=== PATIENT | male | born 1985 | race Hispanic/Latino ===

== ENCOUNTER 2025-01-06 16:53 | Inpatient (IN) | payer SELFPAY ==
[2025-01-06 16:54] VITALS: BP 125/81; PULSE 84; RESP 16; TEMP 36.5; O2SAT 99; BMI 26.2
--- NOTE | 2025-01-06 17:12 | EX.ED.DYSGE1 ---
HPI History of Present Illness Chief Complaint: General Illness Detail of Chief Complaint: Ache all over Onset/Context/Timing Onset: Today (1599) Context: Sudden Onset Timing: Continuous Quality: Thirsty, cramping Location: Not applicable Current Severity: Moderate Maximum Severity: Moderate Worsened by: Insufficient intake Relieved by: Nothing Associated Symptoms Associated Symptoms: Detailed HPI narrative Narrative Narrative: Patient is a 39-year-old male who is non-French speaking and drinks and smokes daily who presents with cramping, aching, headache, thirst and not feeling well since 1599. He started work at 7 AM. States has had 8 bottles of water. Has not urinated since he left his home. He denies change in vision. He denies cardiac or respiratory symptoms. His only GI symptom is nausea. He has had no urine output since this morning. He presents from work Prior similar symptoms: No Recent Illness/Hospitalization: No PFSH PFSH Medical History no medical history no medical history Allergy/AdvReac Type Severity Reaction Status Date / Time No Known Allergies Allergy Verified 01/06/25 16:57 Family History no significant family his Surgical History no surgical history Social History (Updated 01/06/25 @ 17:[address] John Johnston MD) Smoking Status: Current every day smoker alcohol intake: current ROS ROS ED Constitutional Constitutional ED: Denies chills, fever(s), subjective or sweats Eyes Eyes: Denies blurry vision or change in vision ENT ENT ED: Denies ear pain, rhinorrhea or sore throat Cardiovascular Cardiovascular: Denies chest pain or palpitations Respiratory/Chest Respiratory/Chest: Denies cough, dyspnea or dyspnea on exertion Gastrointestinal Gastrointestinal: Reports nausea; Denies abdominal pain, constipation, diarrhea, melena or vomiting Genitourinary Genitourinary ED: Reports other Details: No urine output since this morning Musculoskeletal Musculoskeletal: Reports other Details: Cramping upper and lower extremities Integumentary Denies rash Neurologic Neurologic: Reports headache(s) and weakness; Denies paresthesias Hematologic/Lymphatic Hematologic/Lymphatic: Reports systems reviewed and no addt'l complaints, except as documented EXAM Physical Exam Const Vital Signs: 01/06/25 16:54 01/06/25 16:57 01/06/25 18:54 Temperature 97.7 F L Temperature Source Axillary Pulse Rate 84 70 Respiratory Rate 16 18 Respiratory Effort Normal Non-Labored Respiratory Pattern Normal Blood Pressure 125/81 H 117/74 Blood Pressure Mean 95 88 Pulse Ox 99 98 Oxygen Delivery Method Room Air Positive well nourished and well developed Constitutional Narrative: Patient appears ill. He is sweating. His clothes are saturated. General Appearance ED: well developed; Negative for cyanotic or diaphoretic HEENT Reports dry mucous membranes HEENT Narrative: Head is atraumatic normocephalic. Ears normal. Nares patent. Posterior pharynx is normal. Mouth ED: Yes dry mucous membranes Mouth: dry mucous membranes Eyes PERRL and EOMs intact bilaterally General Eye ED: Negative for pale conjunctiva or scleral icterus Neck no lymphadenopathy, supple and no JVD Chest Wall inspection of chest normal and palpation of chest normal Resp normal respiratory effort and clear to auscultation bilaterally Cardio regular rate, regular rhythm, S1 normal heart sound, S2 normal heart sound and no murmurs GI normal to inspection, nondistended, normoactive bowel sounds, non-tender, non-distended and no masses; Negative for hepatosplenomegaly Extremity normal to inspection Extremity Narrative: There is no clubbing or cyanosis. Neuro oriented x3, CN's II-XII intact bilaterally and no sensory deficits noted Sensorium / Orientation: alert Motor Exam: strength 5/5 throughout Psych mental status grossly normal Skin Skin Narrative: Patient is suntanned/sunburn. MDM MDM MDM Narrative Medical decision making narrative: Patient presents with heat cramps. Will obtain electrolytes to assess renal function and sodium CO2 anion gap. 2 L of normal saline was ordered. Will reassess after the 2 L have infused. Clinically he is profoundly dehydrated. Lab Data Attestation: I reviewed the patient's lab results. Lab results narrative: Basic metabolic panel is remarkable for hyponatremia, high anion gap acidosis and acute kidney injury with a creatinine of 2.51. Estimated GFR is 33. Labs: Laboratory Results - last 24 hr 01/06/25 17:17 Sodium 132 L Potassium 4.0 Chloride 90 L Carbon Dioxide 20.6 L Anion Gap 22 H BUN 19 Creatinine 2.51 H Estim Creat Clear Calc 28.50 L Est GFR (MDRD) Non-Af 33 L BUN/Creatinine Ratio 7.7 L Glucose 99 Calcium 11.0 Management Discussion w/another healthcare provider: Hospitalist (Dr. Kasandra Colon was made aware. Full admit MedSurg) Treatment and Re-Evaluation :: Life Sciences Director was asked to page the hospitalist at [phone]. Will add liver profile, lipase and CBC. Discharge Plan Dx/Rx/DC Orders Clinical Impression: Acute kidney injury, Acute dehydration, Heat exhaustion due to water depletion, Heat cramp, initial encounter, Hyponatremia, High anion gap metabolic acidosis Disposition Disposition: Acute Care [facility]
[2025-01-06] MEDS: 0.9% Normal Saline (1000mL) 1,000 ML 1000 ML IV ×2 (17:38→18:01)
[2025-01-06 18:09] LABS: Anion Gap 22 (5-15); BUN 19 mg/dL (4-19); BUN/Creat Ratio 7.7 RATIO (10-20); Carbon Dioxide 20.6 mmol/L (21.0-32.0); Chloride 90 mmol/L (98-108); Creatinine, Serum 2.51 mg/dL (0.70-1.20); EST Glomerular Filtration Rate 33 (>60); Glucose 99 mg/dL (70-99); Sodium Level 132 mmol/L (133-145)
[2025-01-06 18:54] VITALS: BP 117/74; PULSE 70; RESP 18; O2SAT 98
[2025-01-06 19:09] VITALS: BP 117/74; PULSE 70; RESP 18; TEMP 36.8; O2SAT 98
--- NOTE | 2025-01-06 19:16 | PCM.HP.STD ---
HPI - General General Date of Admission: 01/06/25 Date of Service: 01/06/25 Chief Complaint: General malaise. HPI Narrative The patient is a [place] speaking M w/ PMHx: Tobacco use, EtOH abuse (3-4 beers daily) with otherwise no medical history who presents to the [facility] ED on 01/06/25 with history of significant muscle cramping, fatigue, aches, mild diffuse headache with throbbing, increased thirst with general malaise and onset of symptoms starting at approximately 4 PM in the afternoon noting that he had started work at 7 AM and did drink at least 8 bottles of water but he had been working outside and has not urinated since transition to work prompting eventual ED evaluation to be cautious. Workup in the ED included T97.7, heart rate 84, BP 125/81, respiratory rate 16, 99% on room air, BMP with sodium 132, chloride 90, carbon oxide 20.6, anion gap 22, BUN/creatinine 19/2.51, GFR 33. Discussed with ED physician and pending CBC, creatinine kinase upon requested evaluation of patient given concern for possible rhabdomyolysis in addition to acute kidney injury especially given poor urine output. [facility] Medical History Alcohol abuse Tobacco use Medical History no medical history Home Medications ?Medication ?Instructions ?Recorded ?Last Taken ?Type NK 01/06/25 Unknown History Allergy/AdvReac Type Severity Reaction Status Date / Time No Known Allergies Allergy Verified 01/06/25 16:57 Family History (Updated 01/07/25 @ 01:[address] France Johnson MD) Mother No problems noted. Father No problems noted. Family History no significant family his other (Patient denies any marked maternal/paternal family history including heart disease, diabetes, cancer.) Surgical History (Updated 01/07/25 @ 01:[address] France Johnson MD) No history of previous surgery Surgical History no surgical history Social History (Updated 01/07/25 @ 01:[address] France Johnson MD) household members: none Smoking Status: Current every day smoker tobacco type: cigarettes Smoking packs per day: 1 Smoking cigarettes per day: 20.0 alcohol intake: current alcohol intake frequency: 3 or more drinks per day details: 3-4 beers daily. substance use type: does not use ROS ROS Narrative Admission Review of Systems: CONSTITUTIONAL: No weight loss, fever, chills, + weakness or fatigue. HEENT: + Headache. Eyes: No visual loss, blurred vision, double vision or yellow sclerae. Ears, Nose, Throat: No hearing loss, sneezing, congestion, runny nose or sore throat. SKIN: No rash or itching, lesions, wounds. CARDIOVASCULAR: No chest pain, chest pressure or chest discomfort, palpitations, edema, orthopnea, syncopal events. RESPIRATORY: No shortness of breath, cough or sputum, wheezing, hemoptysis. GASTROINTESTINAL: + Anorexia, nausea. No vomiting or diarrhea, abdominal pain, melena, BRBPR. GENITOURINARY: No dysuria, frequency, urgency or retention. NEUROLOGICAL: + Headache. No dizziness, syncope, paralysis, ataxia, numbness or tingling in the extremities, focal weakness, change in bowel or bladder control, seizure. MUSCULOSKELETAL: + muscle, back pain, joint pain or stiffness. HEMATOLOGIC: No anemia, bleeding or bruising. LYMPHATICS: No enlarged nodes. No history of splenectomy. PSYCHIATRIC: No history of depression or anxiety. ENDOCRINOLOGIC: No reports of sweating, cold or heat intolerance. No polyuria or polydipsia. ALLERGIES: No history of asthma, hives, eczema or rhinitis. Vital Signs Vital Signs Vital Signs: 01/06/25 16:54 01/06/25 16:57 01/06/25 18:54 Temperature 97.7 F L Temperature Source Axillary Pulse Rate 84 70 Respiratory Rate 16 18 Respiratory Effort Normal Non-Labored Respiratory Pattern Normal Blood Pressure 125/81 H 117/74 Blood Pressure Mean 95 88 Pulse Ox 99 98 Oxygen Delivery Method Room Air 01/06/25 19:09 Temperature 98.3 F Temperature Source Pulse Rate 70 Respiratory Rate 18 Respiratory Effort Respiratory Pattern Blood Pressure 117/74 Blood Pressure Mean 88 Pulse Ox 98 Oxygen Delivery Method Weight Weight: 125 lb 7.088 oz Body Mass Index (BMI) 26.2 Physical Exam Narrative Physical Examination: General: Awake, alert, oriented x 3 and cooperative, laying in the bed, fatigued, ill-appearing. Skin: Normal color, normal turgor, no icterus, no cyanosis except for occasional abrasion. HEENT: AT/NC, EOMI, PERRLA, mild bilateral scleral injection noted, right greater than left, dry MM, no carotid bruits or JVD noted. Lungs: Mild diminished, greater bases, poor effort, no rales, ronchi or wheezing. Heart: Regular rate and rhythm; no gallop, rub audible. Abdomen: Soft, NTTP, ND, mildly hyperactive BS, no appreciated HSM. Extremities: No cyanosis, clubbing, or edema. Neurological: Patient awake, alert, oriented as noted, cognitive function suspected near baseline intact; pupils equally reactive to light and accommodation, cranial nerves gross normal, moving all 4 extremities, no focal deficits, strength moderately globally decreased. Psychiatric: Affect appears flat, fatigued, no acute evidence of depressive or anxiety feelings. Results Lab / Micro Data 01/06/25 20:33 01/06/25 17:17 Labs: Laboratory Results - last 24 hr 01/06/25 17:17: Sodium 132 L, Potassium 4.0, Chloride 90 L, Carbon Dioxide 20.6 L, Anion Gap 22 H, BUN 19, Creatinine 2.51 H, Estim Creat Clear Calc 28.50 L, Est GFR (MDRD) Non-Af 33 L, BUN/Creatinine Ratio 7.7 L, Glucose 99, Calcium 11.0 Assessment & Plan Assessment/Plan (1) Acute kidney injury: PLAN: Plan The patient is a [place] speaking M w/ PMHx: Tobacco use, EtOH abuse (3-4 beers daily) with otherwise no medical history who presents to the [facility] ED on 01/06/25 with history of significant muscle cramping, fatigue, aches, mild diffuse headache with throbbing, increased thirst with general malaise and onset of symptoms starting at approximately 4 pm. #1. Acute mild rhabdomyolysis complicated by MARITZA as well as high anion gap metabolic acidosis: Will admit to medical surgical floor given stable vital signs otherwise, will continue aggressive IV fluid hydration, T CK only mildly elevated 311, significant MARITZA thus will monitor I's and O's, ensure urine output appropriate and increase fluids if necessary, will continue to trend CBC, CMP, creatinine kinase, case management consulted given patient is [place]-speaking with no insurance and no healthcare follow-up. #2. Acute kidney injury: Secondary to poor oral intake, heat exposure for prolonged period of time, admission BUN/Cr 19/2.51, GFR 33, prior baseline creatinine unknown but per patient discussion presumed normal renal function, will continue to aggressively hydrate, hold nephrotoxic medications and repeat chemistry in AM, requested FeNa assessment. If repeat renal function not markedly improving and still poor urine output low threshold to obtain renal ultrasound and nephrology involvement. #3. Hyponatremia, hypochloremia, hypokalemia: Admission sodium 132, chloride 90, will continue to aggressively hydrate and repeat CMP in a.m. as noted. #4. EtOH Abuse: Patient notes routine consumption of at least 3-4 beers per day. Will maintain on CIWA protocol, MVI, thiamine and folic acid. Case management consulted for substance abuse counseling/treatment options. #5. Tobacco Abuse: Encouraged cessation, inpatient consultation per RT, NR if desired. #6. DVT prophylaxis: Heparin. Charges/Coding Visit Charges Inpatient E&M: 43387 Init Hosp L2
[2025-01-06 21:03] LABS: CPK Total, Creatine Kinase 311 U/L (24-195)
[2025-01-06 21:05] LABS: Absolute Lymphocyte Count 1.33 X10^3/uL (0.83-4.51); Absolute Neutrophil Count 7.1 X10^3/uL (2.0-7.7); Basophil# 0.05 X10^3/uL; Basophil% 0.5 % (0-1); Eosinophil# 0.03 X10^3/uL; Eosinophils% 0.3 % (0-5); Hematocrit 40.5 % (40-54); Hemoglobin 13.8 g/dL (13.0-16.5); Lymphocyte # 1.33 X10^3/ul (0.83-4.51); Lymphocyte % 14.4 % (19-41); Mean Corp Hgb Conc 34.1 g/dL (32-36); Mean Corpuscular Hgb 32.1 pg (27.0-32.0); Mean Corpuscular Volume 94.2 fL (80-94); Mean Platelet Vol. 8.8 fl (6.2-12.0); Monocyte% 6.5 % (0-10); NRBC Flagged by Analyzer 0 % (0-5); Neutrophil # 7.13 X10^3/uL (2.7-7.7); Neutrophil % 77.5 % (47-70); Platelet Count 262 K/mm3 (150-450); RBC Distribution Width CV 13.1 % (11.6-14.6); RBC Distribution Width SD 44.9 fl (35.1-43.9); White Blood Count 9.2 K/mm3 (4.4-11.0)
[2025-01-06 21:10] VITALS: BMI 25.1
[2025-01-06 21:31] VITALS: BP 128/74; PULSE 70; RESP 16; TEMP 37; O2SAT 100
[2025-01-06 21:34] LABS: AST(SGOT) 44 U/L (<=37); Alanine Aminotransfer ALT/SGPT 32 U/L (<=46); Albumin, Serum 4.4 g/dL (3.5-5.0); Alkaline Phosphatase 108 U/L (40-129); Bilirubin, Direct 0.23 mg/dL (0.00-0.30); Globulin 2.7 g/dL (2.2-4.2); Magnesium 2.4 mg/dL (1.5-2.2); Phosphorus 4.6 mg/dL (2.7-4.5); Protein, Total 7.1 g/dL (5.9-8.4); Total Bilirubin 0.64 mg/dL (0.00-1.30)
[2025-01-06] MEDS: Pantoprazole Sodium 40 MG in 0.9% Normal Saline (100mL MB+) 100 ML 330 MG IV (22:48)
[2025-01-06] MEDS: 0.9% Normal Saline (1000mL) 1,000 ML 150 ML IV (22:48)
[2025-01-06] MEDS: Acetaminophen 325 MG Tablet 650 MG PO (22:50)
[2025-01-06] MEDS: Heparin Injection (Vial) 5,000 UNIT/ML VIAL 5000 UNIT SC (22:54)
[2025-01-07 03:30] VITALS: BP 104/58; PULSE 66; RESP 16; TEMP 36.6; O2SAT 100
[2025-01-07 04:39] LABS: Urine Sodium 58 mmol/L (Not Establ.)
[2025-01-07 05:18] VITALS: BMI 25.6
[2025-01-07] MEDS: 0.9% Normal Saline (1000mL) 1,000 ML 150 ML IV (05:51)
[2025-01-07 05:52] LABS: Absolute Lymphocyte Count 1.63 X10^3/uL (0.83-4.51); Absolute Neutrophil Count 3.7 X10^3/uL (2.0-7.7); Basophil# 0.03 X10^3/uL; Basophil% 0.5 % (0-1); Eosinophils% 1.7 % (0-5); Hematocrit 39.5 % (40-54); Hemoglobin 13.3 g/dL (13.0-16.5); Lymphocyte # 1.63 X10^3/ul (0.83-4.51); Mean Corp Hgb Conc 33.7 g/dL (32-36); Mean Corpuscular Hgb 32.2 pg (27.0-32.0); Mean Corpuscular Volume 95.6 fL (80-94); Mean Platelet Vol. 8.7 fl (6.2-12.0); Monocyte# 0.51 X10^3/uL; Monocyte% 8.4 % (0-10); NRBC Flagged by Analyzer 0 % (0-5); Neutrophil # 3.72 X10^3/uL (2.7-7.7); Neutrophil % 61.6 % (47-70); Platelet Count 230 K/mm3 (150-450); RBC Distribution Width CV 13.3 % (11.6-14.6); RBC Distribution Width SD 46.6 fl (35.1-43.9); Red Blood Count 4.13 M/mm3 (4.6-6.2)
[2025-01-07 06:38] LABS: CPK Total, Creatine Kinase 292 U/L (24-195)
[2025-01-07 06:40] LABS: ALB/GLOB Ratio 1.6 RATIO (0.9-2.4); AST(SGOT) 36 U/L (<=37); Alanine Aminotransfer ALT/SGPT 26 U/L (<=46); Albumin, Serum 3.9 g/dL (3.5-5.0); Alkaline Phosphatase 94 U/L (40-129); Anion Gap 11 (5-15); BUN 13 mg/dL (4-19); BUN/Creat Ratio 14.4 RATIO (10-20); Calcium,Total 8.5 mg/dL (7.6-11.0); Carbon Dioxide 21.7 mmol/L (21.0-32.0); Chloride 106 mmol/L (98-108); Creatinine, Serum 0.91 mg/dL (0.70-1.20); EST Glomerular Filtration Rate 112 (>60); Globulin 2.4 g/dL (2.2-4.2); Glucose 92 mg/dL (70-99); Protein, Total 6.3 g/dL (5.9-8.4); Sodium Level 139 mmol/L (133-145); Total Bilirubin 1.18 mg/dL (0.00-1.30)
--- NOTE | 2025-01-07 07:22 | PCM.PN.HOSP ---
Reason for Visit Reason for Visit: Diagnoses Acute kidney failure, unspecified (01/06/25) Subjective Subjective I asked the patient before entering the room if it was okay to use Google translate (Podemos usar Google Translate?) to communicate to which he said it was. Said he is feeling better but still weak. Has been eating. Objective Data Objective Data Vital Signs: Vital Signs Temp Pulse Resp BP Pulse Ox O2 Del Method 36.6 C 66 16 104/58 L 100 Room Air 01/07/25 03:30 01/07/25 03:30 01/07/25 03:30 01/07/25 03:30 01/07/25 03:30 01/07/25 03:30 Oxygen Delivery Method Room Air Weight: 55.3 kg Body Mass Index (BMI) 25.6 Intake & Output: Intake and Output for Last 24 Hours 01/05/25 01/06/25 01/07/25 23:59 23:59 23:59 Intake Total 1583.33 / 1583.33 1000 / 1000 Output Total 120 / 120 Balance 1583.33 / 1583.33 880 / 880 Lab / Micro Data 01/07/25 05:40 01/07/25 05:40 Labs: Laboratory Results - last 24 hr 01/06/25 17:17: Sodium 132 L, Potassium 4.0, Chloride 90 L, Carbon Dioxide 20.6 L, Anion Gap 22 H, BUN 19, Creatinine 2.51 H, Estim Creat Clear Calc 28.50 L, Est GFR (MDRD) Non-Af 33 L, BUN/Creatinine Ratio 7.7 L, Glucose 99, Calcium 11.0, Total Creatine Kinase 311 H 01/06/25 20:33: WBC 9.2, RBC 4.30 L, Hgb 13.8, Hct 40.5, MCV 94.2 H, MCH 32.1 H, MCHC 34.1, RDW Std Deviation 44.9 H, RDW Coeff of Sol 13.1, Plt Count 262, MPV 8.8, Immature Gran % (Auto) 0.800, Neut % (Auto) 77.5 H, Lymph % (Auto) 14.4 L, [place] % (Auto) 6.5, Eos % (Auto) 0.3, Baso % (Auto) 0.5, Absolute Neuts (auto) 7.1, Absolute Lymphs (auto) 1.33, Nucleated RBC % 0, Phosphorus 4.6 H, Magnesium 2.4 H, Total Bilirubin 0.64, Direct Bilirubin 0.23, AST 44 H, ALT 32, Alkaline Phosphatase 108, Total Protein 7.1, Albumin 4.4, Globulin 2.7 01/07/25 03:39: Ur Random Sodium 58, Urine Creatinine 152.00 01/07/25 05:40: WBC 6.0, RBC 4.13 L, Hgb 13.3, Hct 39.5 L, MCV 95.6 H, MCH 32.2 H, MCHC 33.7, RDW Std Deviation 46.6 H, RDW Coeff of Sol 13.3, Plt Count 230, MPV 8.7, Immature Gran % (Auto) 0.800, Neut % (Auto) 61.6, Lymph % (Auto) 27.0, [place] % (Auto) 8.4, Eos % (Auto) 1.7, Baso % (Auto) 0.5, Absolute Neuts (auto) 3.7, Absolute Lymphs (auto) 1.63, Nucleated RBC % 0, Sodium 139, Potassium 4.0, Chloride 106, Carbon Dioxide 21.7, Anion Gap 11, BUN 13, Creatinine 0.91, Estim Creat Clear Calc 78.60, Est GFR (MDRD) Non-Af 112, BUN/Creatinine Ratio 14.4, Glucose 92, Calcium 8.5, Total Bilirubin 1.18, AST 36, ALT 26, Alkaline Phosphatase 94, Total Creatine Kinase 292 H, Total Protein 6.3, Albumin 3.9, Globulin 2.4, Albumin/Globulin Ratio 1.6 Physical Exam Const alert and no apparent distress Constitutional Narrative: Up in bed. Nontoxic. HEENT head/scalp atraumatic and moist oral mucous membranes Resp normal respiratory effort and no retractions Assessment & Plan Assessment/Plan (1) Acute kidney injury: PLAN: with metabolic acidosis. Resolved with IVF 2/2 to dehydration Likely secondary to working outside when it was very hot not compensating with enough fluids. Overall the patient is doing well and patient advised that he may return to work on the but instructed to drink plenty of fluids. PLAN: Plan Rhabdomyolysis: mild. likely skewed given MARITZA. VTE prophylaxis: LMWH.
[2025-01-07 09:30] VITALS: BP 115/62; PULSE 63; RESP 16; TEMP 36.5; O2SAT 100
[2025-01-07] MEDS: Multivitamins,Ther W-Minerals Tablet 1 TABLET PO (09:30)
[2025-01-07] MEDS: Folic Acid 1 MG Tablet PO (09:30)
[2025-01-07] MEDS: Heparin Injection (Vial) 5,000 UNIT/ML VIAL 5000 UNIT SC (09:30)
[2025-01-07] MEDS: Thiamine Hydrochloride 100 MG Tablet PO (09:30)
[2025-01-07] MEDS: Pantoprazole Sodium 40 MG in 0.9% Normal Saline (100mL MB+) 100 ML 330 MG IV (09:36)
--- NOTE | 2025-01-07 10:19 | PCM.DC.SUM ---
Providers Date of Admission: 01/06/25 Primary Care Physician: No Primary Care Phys Reason For Visit: MARITZA DEHYDRATION Diagnosis Discharge Diagnosis (1) Acute kidney injury: Status: Acute Code(s): N17.9 - Acute kidney failure, unspecified Plan: with metabolic acidosis. Resolved with IVF 2/2 to dehydration Likely secondary to working outside when it was very hot not compensating with enough fluids. Overall the patient is doing well and patient advised that he may return to work on the but instructed to drink plenty of fluids. Plan Rhabdomyolysis: mild. likely skewed given MARITZA. VTE prophylaxis: LMWH. Medications at Discharge Home Medications NK 01/06/25 Hospital Course Operations None Procedures None Summary of Care Provided Minutes Spent on Discharge: 35 Weight / BMI Weight Weight: 55.3 kg Body Mass Index (BMI) 25.6 ABG / Lab / Microbiology Data 01/07/25 05:40 01/07/25 05:40 Laboratory: Laboratory Results - last 24 hr 01/06/25 17:17: Sodium 132 L, Potassium 4.0, Chloride 90 L, Carbon Dioxide 20.6 L, Anion Gap 22 H, BUN 19, Creatinine 2.51 H, Estim Creat Clear Calc 28.50 L, Est GFR (MDRD) Non-Af 33 L, BUN/Creatinine Ratio 7.7 L, Glucose 99, Calcium 11.0, Total Creatine Kinase 311 H 01/06/25 20:33: WBC 9.2, RBC 4.30 L, Hgb 13.8, Hct 40.5, MCV 94.2 H, MCH 32.1 H, MCHC 34.1, RDW Std Deviation 44.9 H, RDW Coeff of Sol 13.1, Plt Count 262, MPV 8.8, Immature Gran % (Auto) 0.800, Neut % (Auto) 77.5 H, Lymph % (Auto) 14.4 L, [place] % (Auto) 6.5, Eos % (Auto) 0.3, Baso % (Auto) 0.5, Absolute Neuts (auto) 7.1, Absolute Lymphs (auto) 1.33, Nucleated RBC % 0, Phosphorus 4.6 H, Magnesium 2.4 H, Total Bilirubin 0.64, Direct Bilirubin 0.23, AST 44 H, ALT 32, Alkaline Phosphatase 108, Total Protein 7.1, Albumin 4.4, Globulin 2.7 01/07/25 03:39: Ur Random Sodium 58, Urine Creatinine 152.00 01/07/25 05:40: WBC 6.0, RBC 4.13 L, Hgb 13.3, Hct 39.5 L, MCV 95.6 H, MCH 32.2 H, MCHC 33.7, RDW Std Deviation 46.6 H, RDW Coeff of Sol 13.3, Plt Count 230, MPV 8.7, Immature Gran % (Auto) 0.800, Neut % (Auto) 61.6, Lymph % (Auto) 27.0, [place] % (Auto) 8.4, Eos % (Auto) 1.7, Baso % (Auto) 0.5, Absolute Neuts (auto) 3.7, Absolute Lymphs (auto) 1.63, Nucleated RBC % 0, Sodium 139, Potassium 4.0, Chloride 106, Carbon Dioxide 21.7, Anion Gap 11, BUN 13, Creatinine 0.91, Estim Creat Clear Calc 78.60, Est GFR (MDRD) Non-Af 112, BUN/Creatinine Ratio 14.4, Glucose 92, Calcium 8.5, Total Bilirubin 1.18, AST 36, ALT 26, Alkaline Phosphatase 94, Total Creatine Kinase 292 H, Total Protein 6.3, Albumin 3.9, Globulin 2.4, Albumin/Globulin Ratio 1.6 D/C Instructions Discharge Diet: No restrictions Return to work on: 01/08/25 DC O2, CPAP, BIPAP Needs Home O2 Discharge instructions: No Meaningful Use Info Meaningful Use Meaningful Use Diagnoses (Choose all that apply): None applicable Ischemic Stroke Statin Dosing Therapy Reference: STATIN DOSE THERAPY REFERENCE: * Patients > 75 years receive moderate or high dose statin therapy. * Patients 75 years or YOUNGER should receive HIGH intensity statin dose unless contraindicated. You will be required to document reason for non-treatment if statin daily dose does not meet guidelines. HIGH DOSE STATIN THERAPY DAILY Atorvastatin > than or = to 40 mg Rosuvastatin > than or = to 20 mg Amlodipine + Atorvastatin > than or = to 2.5/40 mg Ezetimibe + Simvastatin 10/80 mg Simvastatin 80mg Discharge Plan Admission Admit Date/Time: 01/06/25 19:24 Primary Reason for Your Visit: Acute kidney injury. Dehydration. Attending Provider: Geoff Salazar Primary Care Provider: Care Physician,No Primary Consulting Providers: France Johnson Instructions Additional Instructions / Restrictions: You presented to the hospital with severe dehydration. This is likely due to the fact that you are working outside and got really dehydrated with very hot temperatures that we were having. You responded well with IV fluids. I feel that it is okay for you to return to work tomorrow but be sure to drink plenty of fluids (water, Gatorade, etc.). Acudi? al hospital con deshidrataci?n grave. Probablemente se deba a que est? trabajando al aire nora y se deshidrat? gravemente debido a las altas temperaturas. Respondi? biju a la administraci?n de l?quidos intravenosos. Creo que puede regresar al trabajo ma?halley, nicholas aseg?rese de beber abundante l?quido (agua, Gatorade, etc.). Discharge Orders/Prescriptions Prescriptions: No Action NK Referrals / Follow Up: Care Physician,No Primary [Primary Care Provider] - Disposition Disposition (needs filled in before D/C Order can be placed): Home, Self Care Charges/Coding Visit Charges Inpatient E&M: 78340 Disch Hosp >30min
[2025-01-07] MEDS: Ensure Plus High Protein 120 ML LIQUID PO (11:28)
--- NOTE | 2025-01-07 11:37 | CASEMGMT ---
RN?CM?TRANSPORTATION SUPERVISOR?CM?to room to meet with patient for initial transition planning/care coordination?assessment.?RN?CM?introduced self and role at [facility], using [facility] prep manager pad and prep manager van. Pt voices understanding and consents to?assessment?at this time.? Pt resting in bed in no distress at this time.? Pt is A/O at this time and answers all questions appropriately.?? Care providers, pharmacy, and demographics verified/updated at this time. Strata: 1 PCP: No PCP. Provided [facility] [facility] Pt initially stated he does not have transportation there, but upon further discussion, pt states he may be able to use a taxi or Uber. Specialists: none Preferred Pharmacy: [facility] [place] Insurance: None Prescription Benefit:?None LNOK: Friend, Jj. Living Arrangements: Pt is currently staying @ [place] [address] with 7 other people. He lives in [place], but is currently in [place] for work, stating he will be here for 4 or more months. He states he does have access to food and water. Transportation:? His bosses' brother drives and he has transportation to his job. He plans to call his bosses' brother to take him home from the hospital. DME: ? Denies using any DME and denies needs.? ETOH: Pt states he is interested in information to stop drinking. Pt provided w/[place] info for [facility] substance use. Pt wishes to return back to [place] [address] and states has no concerns with returning there @ [place] PLAN:??Return to [place] [address]. Nicola ROJASN?RN?CM
== END 2025-01-07 13:25 | disposition home or self-care (01) | DRG 558 ==
LOC: ED 18:20 → MS3 22:10
PROVIDERS: Admitting Provider Family Medicine; Emergency Provider Emergency Medicine
DX: M62.82 Rhabdomyolysis (principal); E87.1 Hypo-osmolality and hyponatremia; E87.20 Acidosis, unspecified; N17.9 Acute kidney failure, unspecified; F10.10 Alcohol abuse, uncomplicated; E86.0 Dehydration; F17.210 Nicotine dependence, cigarettes, uncomplicated; E87.8 Other disorders of electrolyte and fluid balance, not elsewhere classified; E87.6 Hypokalemia; T67.3XXA Heat exhaustion, anhydrotic, initial encounter; X30.XXXA Exposure to excessive natural heat, initial encounter
CPT/HCPCS: 36415; 80048; 80053; 80076; 82550; 82570; 83735; 84100; 84300; 85025; 99285; A4216